=== PATIENT | female | born 1955 | race Caucasian/White ===

== ENCOUNTER 2017-12-04 19:05 | Emergency (ER) | payer OTHER ==
[2017-12-04 23:02] LABS: URINE BLOOD (Dip) POC 2+ (NEGATIVE); URINE GLUCOSE (Dip) POC Negative (NEGATIVE); URINE KETONES (Dip) POC Negative (NEGATIVE); URINE LEUKOCYTE EST (Dip) POC Negative (NEGATIVE); URINE NITRITE (Dip) POC Negative (NEGATIVE); URINE TOTAL PROTEIN POC Negative (NEGATIVE)
[2017-12-04 23:02] LABS: URINE PH (Dip) POC 5.5 (5.0-8.5)
[2017-12-04] MEDS: HYDROCODONE/APAP (5/325) TAB PO (23:03)
[2017-12-04] MEDS: KETOROLAC 30 MG INJ IM (23:04)
== END 2017-12-05 00:26 | disposition home or self-care (01) ==
LOC: FTE 12-05 00:26
DX: S33.5XXA Sprain of ligaments of lumbar spine, initial encounter (principal); T83.39XA Other mechanical complication of intrauterine contraceptive device, initial encounter; I10 Essential (primary) hypertension; X58.XXXA Exposure to other specified factors, initial encounter; Y73.8 Miscellaneous gastroenterology and urology devices associated with adverse incidents, not elsewhere classified; Y92.9 Unspecified place or not applicable
CPT/HCPCS: 72100; 74176; 81003; 96372; 99285-25